=== PATIENT | female | born 1990 | race African-American/Black ===

== ENCOUNTER 2017-09-16 04:12 | Emergency (ER) | payer OTHER ==
[2017-09-16 04:29] VITALS: BP 138/82
[2017-09-16] MEDS ORDERED: NALBUPHINE HCL 10 MG/1 ML IM ONE (04:32)
[2017-09-16] MEDS ORDERED: KETOROLAC TROMETHAMINE 60 MG/2 ML VIAL IM ONE (04:32)
--- NOTE | 2017-09-16 04:35 | ED Physician Documentation ---
Sore Throat/Dental Pain - HISTORIAN Historian: patient - HPI Stated Complaint: dental pain Chief Complaint: Dental Pain Further Comments: yes (26 year old female presents with dental pain. Patient awoke during the night with severe dental pain. 02/04) - ROS CONST: no problems CVS/RESP: none GI/: denies: problems urinating, nausea, vomiting MS/SKIN/LYMPH: denies: muscle aches, rash, leg swelling, ankle swelling, other NEURO/PSYCH: none - PAST HX Past History: none Other History: none Allergies/Adverse Reactions: Allergies Allergy/AdvReac Type Severity Reaction Status Date / Time No Known Allergies Allergy Verified 09/16/17 04:24 Home Medications: Ambulatory Orders Medication Instructions Recorded NK [NK] 09/16/17 - SOCIAL HX Smoking History: non-smoker - FAMILY HX Family History: No - VITAL SIGNS Vital Signs: Vital Signs Temp Pulse Resp BP Pulse Ox 98.4 F 99 H 18 138/82 99 09/16/17 04:13 09/16/17 04:13 09/16/17 04:13 09/16/17 04:13 09/16/17 04:13 - REVIEWED ASSESSMENTS Nursing Assessment Reviewed: Yes Vitals Reviewed: Yes Progress - Progress Progress: Pain treated with nubain and toradol. Referral to dentist. ED Results Lab/Radiology - Orders Orders: ED Orders Category Date Time Status Ketorolac Tromethamine [Toradol] Med 09/16/17 04:32 Once 60 mg IM NOW ONE Nalbuphine HCl [Nubain] Med 09/16/17 04:32 Once 10 mg IM NOW ONE Dental Pain Physical Exam - EXAM General Appearance: no acute distress, alert Head/Neck: head nml inspection, trachea midline, no lymphadenopathy, thyroid nml , neck nml inspection Mouth/Throat: lips nml, gums nml, pharynx nml, voice nml, no drooling, no air way problems, no thrush, membranes nml, dental tenderness, other (dental caries noted in #48). No: gum swelling around teeth, widespread dental decay Respiratory: no resp. distress Skin: normal color, warm/dry, NR, INT, PAL, DR Neuro/Psych: No: weakness Discharge Clincal Impression: Dental caries Referrals: Anat Villa MD [Primary Care Provider] - 2 Days Additional Instructions: Ibuprofen 800mg every 8 hours x 3 days Tylenol 650-1000mg every 4 hours as needed for pain, limit your dose to 4G in 24 hours. Over the counter [employer]Tek - follow package directions. Over the counter Orajel as needed for pain See your dentist as soon as possible Condition: Stable Disposition: 01 HOME, SELF-CARE Decision to Admit: NO Decision Time: 04:37
[2017-09-16] MEDS ORDERED: HYDROcodone /APAP 5/325 1 EACH TABLET PO ONE (04:37)
== END 2017-09-16 04:48 | disposition home or self-care (01) ==
LOC: ED 04:12
DX: K02.9 Dental caries, unspecified (principal)
CPT/HCPCS: J1885; J2300; 96372; 99284

== ENCOUNTER 2019-02-12 16:59 | Emergency (ER) | payer OTHER ==
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
[2019-02-12 18:26] VITALS: BP 112/64
== END 2019-02-12 17:57 | disposition home or self-care (01) ==
LOC: ED 16:59
DX: S59.912A Unspecified injury of left forearm, initial encounter (principal); V49.40XA Driver injured in collision with unspecified motor vehicles in traffic accident, initial encounter
CPT/HCPCS: 99281; 99282